=== PATIENT | male | born 1945 | race Caucasian/White ===

== ENCOUNTER 2017-09-09 20:30 | Emergency (ER) | payer MEDICARE, BC ==
[2017-09-09 21:03] LABS: Hematocrit 43.8 % (42.0-52.0); Hemoglobin 14.9 gm/dL (13.5-18.0); Mean Cell Volume 87.8 fl (78-100); Mean Corpuscular Hemoglobin 29.9 pg (27-31); Mean Platelet Volume 9.3 fl (6.0-9.5); Neutrophil # 2.9 K/mm3 (1.3-6.0); Neutrophil % 51.5 % (42-75.0); Platelet Count 213 K/mm3 (150-450); Red Blood Count 4.99 M/mm3 (4.7-6.0); Red Cell Distribution Width 12.9 % (11.5-14.0); White Blood Count 5.7 K/mm3 (4.0-10.5)
[2017-09-09 21:14] LABS: INR 2.83 INR (0.90-1.10); Prothrombin Time (Patient) 28.6 Seconds (9.0-11.0)
--- NOTE | 2017-09-09 21:33 | ERNOTE ---
Medical Problem HPI - Narrative Date of Service: 09/09/17 - General Chief Complaint: General Assessment Time Seen by Provider: 09/09/17 20:52 Source: patient Exam Limitations: no limitations - Immun/Allergies/Home Medications Immunizations: IMMUNIZATION HX Immunizations Up to Date No History of Influenza Vaccine No Hx Pneumococcal Vaccination No Allergies/Adverse Reactions: Allergies No Known Allergies Allergy (Verified 09/09/17 21:01) Home Medications: HOME MEDICATIONS Aspirin [Naun Chewable Aspirin] 81 mg PO DAILY 01/29/14 [Last Taken Unknown] Warfarin Sodium [Coumadin] 5 mg PO DAILY 01/29/14 [Last Taken Unknown] Furosemide 20 mg PO DAILY 09/09/17 [Last Taken Unknown] Losartan Potassium [Cozaar] 25 mg PO DAILY 09/09/17 [Last Taken Unknown] Metoprolol Tartrate [Lopressor] 1.5 tab PO BID 09/09/17 [Last Taken Unknown] Potassium Chloride [K-Dur] 20 meq PO DAILY 09/09/17 [Last Taken Unknown] glipiZIDE [Glipizide] 10 mg PO DAILY 09/09/17 [Last Taken Unknown] metFORMIN HCL [Glucophage] 500 mg PO DAILY 09/09/17 [Last Taken Unknown] - History of Present History Narrative: Patient comes in for bleeding from the site of incision, 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 Any pain or discomfort. He states everything was fine until approximately an hour ago wherein a small slow ooze started. Patient has a history of valvular replacement and he is on Coumadin and aspirin. Review of Systems - Review of Systems Constitutional: Present: no symptoms reported EYE: Present: no symptoms reported ENT: Present: See HPI Respiratory: Present: no symptoms reported Cardiology: Present: no symptoms reported Gastrointestinal/Abdominal: Present: no symptoms reported Genitourinary: Present: no symptoms reported Musculoskeletal: Present: no symptoms reported Skin: Present: See HPI - Patient's Past Medical History Patient History - Medical: No pertinent hx Patient History - Cardiac/Respiratory: Hypertension Patient History - Cancer: Skin Patient History - Surgical Procedures: Appendectomy, T & A, Other Patient History - Other: None - Social History Living Situations: home Psych History: No pertinent hx Have you smoked in the past 12 months: No Do you dip or chew tobacco: No Alcohol Use: none Drug Use: none - Immunizations Immunizations Up to Date: No Hx Pneumococcal Vaccination: No History of Influenza Vaccine: No Physical Exam - Physical Exam General Appearance: Present: wd/wn, alert, no apparent distress Head Exam: Present: other - there is a 3 cm linear incision felt together with simple interrupted sutures at 1 mm intervals at the lateral epicanthus of the right eye extending 3 cm caudally area looks well-healed there is a tiny amount of oozing going on from the central sutures. There appears to be no active bleeding at this time. Respiratory: Present: no respiratory distress, normal breath sounds, no accessory muscle use, chest nontender, lungs clear Cardiovascular/Chest: Present: regular rate, rhythm, no murmur, normal peripheral pulses ED Progress - Results and Orders Patient's Lab Results:: I have reviewed the patient's lab results. - Vital Signs Patient's Vital Signs:: I have reviewed the patient's vital signs. Vital Signs: Vital Signs 09/09/17 20:33 Temperature 36 C L Pulse Rate 64 Respiratory 14 Rate Blood Pressure 173/87 O2 Sat by Pulse 100 Oximetry - Progress/Reassessment Chief Complaint: General Assessment Plan - Plan Plan: This case was discussed with our county surveyor Dr. Savage from [facility] dermatology and it was agreed that the patient's PT and INR are within normal limits and a pressure bulky dressing will be placed and patient will be followed up by his county surveyor tomorrow Departure Clinical Impression: Postoperative bleeding from incision - Departure Disposition: Home self-care Condition: Good Additional Instructions: U appear to be having a minimal amount of oozing from your incision. A pressure dressing has been applied. Please follow-up with your county surveyor in the morning. Referrals: Diane Mccurdy MD [Primary Care Provider] -
[2017-09-09 21:38] VITALS: BP 153/58
== END 2017-09-09 21:37 | disposition home or self-care (01) ==
LOC: ER 20:30
DX: H59.89 Other postprocedural complications and disorders of eye and adnexa, not elsewhere classified (principal); Z85.828 Personal history of other malignant neoplasm of skin; Z79.01 Long term (current) use of anticoagulants